=== PATIENT | female | born 1960 | race African-American/Black ===

== ENCOUNTER 2016-07-25 02:41 | Emergency (ER) | payer OTHER ==
[~2016-07-25] VITALS: Ht 170.2 cm; Wt 83.9 kg
[~2016-07-25 02:41] MED LIST: ACET30TA15; ATOR40TA52 PO; LORAPOW16; OMEP20CA5 OR; [UNRECOGNIZED DRUG - CODE] PO
[2016-07-25 03:51] LABS: Basophils # (auto) 0 uL; Basophils % (auto) 0.5 % (0.0-2.0); Eosinophils # (auto) 0.2 uL; Eosinophils % (auto) 2.5 % (0.0-7.0); Hematocrit 43.2 % (36.0-46.0); Hemoglobin 13.8 g/dL (12.2-16.2); Lymphocytes # (auto) 3.2 uL; Lymphocytes % (auto) 40.2 % (10.0-50.0); Mean Corpuscular Hemoglobin 27.3 pg (28.0-32.0); Mean Corpuscular Volume 85.2 fL (80.0-100.0); Monocytes # (auto) 0.4 uL; Monocytes % (auto) 5.1 % (0.0-12.0); Neutrophils # (auto) 4.1 uL; Neutrophils % (auto) 51.7 % (37.0-80.0); Platelet Count (auto) 268 10^3/uL (140-450); Red Cell Distribution Width 12.6 % (11.6-16.0)
[2016-07-25 04:07] LABS: Prothrombin Time 10.3 sec (9.37-12.3)
[2016-07-25 04:13] LABS: Albumin 3.7 g/dL (3.4-5.0); BUN/Creatinine Ratio 12.6; Calcium 8.9 mg/dL (8.5-10.1); Potassium 3.4 mmol/L (3.5-5.1)
[2016-07-25 04:15] LABS: Bilirubin, Total 0.4 mg/dL (0.2-1.0); Total Protein 6.8 g/dL (6.4-8.2)
[2016-07-25 04:20] LABS: Urine RBC None Seen /hpf (0 - 4)
[2016-07-25 04:27] LABS: Urine Bilirubin Negative (Negative); Urine Blood Negative /uL (Negative); Urine Color Colorless (Yellow); Urine Glucose Normal (Normal); Urine Ketone Negative (Negative); Urine Nitrite Negative (Negative); Urine Squamous Epithelial Cell FEW /hpf (<5); Urine Urobilinogen Normal (Negative); Urine pH 6.5 (5.0-8.0)
[2016-07-25] MEDS ORDERED: ASPirin 81 mg TAB PO ONE (06:15)
[2016-07-25] MEDS ORDERED: HYDROcodone-ACET 5/325MG TAB PO ONE (06:30)
[2016-07-25 09:06] VITALS: BP 150/93
== END 2016-07-25 09:29 | disposition short-term general hospital (02) ==
LOC: EDBD 02:41 → ER 02:44
DX: G45.9 Transient cerebral ischemic attack, unspecified (principal); R07.89 Other chest pain; E11.9 Type 2 diabetes mellitus without complications; M19.90 Unspecified osteoarthritis, unspecified site; K21.9 Gastro-esophageal reflux disease without esophagitis; E78.5 Hyperlipidemia, unspecified; I10 Essential (primary) hypertension; Z98.890 Other specified postprocedural states; Z88.6 Allergy status to analgesic agent
CPT/HCPCS: 36415; 70450; 71010; 80053; 81001; 84484; 85025; 85610; 85730; 93005; 94761

== ENCOUNTER 2023-12-02 19:01 | Inpatient (IN) | payer OTHER ==
[2023-12-01] MEDS: fentaNYL Drip 2500mCg/250mlNS 250 ML IV SCH (19:56)
[~2023-12-02] VITALS: Ht 172.7 cm; Wt 84.4 kg
[~2023-12-02 19:01] MED LIST changes: -OMEP20CA5 OR; +OMEP20CA74 OR
[2023-12-02] MEDS: NALOXONE HCL 1MG/ML 2ML SYRINGE IV ONE (19:20)
[2023-12-02] MEDS: NALOXONE HCL 1MG/ML 2ML SYRINGE ONE (19:20)
[2023-12-02] MEDS: PROPOFOL 100 ML IV ONE (19:24)
[2023-12-02] MEDS: ETOMIDATE (2MG/ML) 20ML VIAL IV ONE ×3 (19:24→19:30)
[2023-12-02] MEDS: MIDAZOLAM HCL 5 MG/ML-1ML VIAL ONE (19:25)
[2023-12-02] MEDS: SUCCINYLCHOLINE CHLORIDE 20 MG/ML 10ML VIAL IV ONE ×2 (19:32→19:34)
[2023-12-02] MEDS: PROPOFOL 100 ML IV SCH (19:37)
[2023-12-02] MEDS: NOREPINEPHRINE 8 MG/250ML KIT 250 ML IV ONE (19:54)
[2023-12-02] MEDS: fentaNYL Drip 2500mCg/250mlNS 250 ML IV ONE (19:56)
[2023-12-02] MEDS: NOREPINEPHRINE 8 MG/250ML KIT 250 ML IV SCH (20:00)
[2023-12-02] MEDS ORDERED: MORPHINE SULFATE 4 MG/ML SYR/VIAL IV PRN (20:15)
[2023-12-02] MEDS ORDERED: PROPOFOL 100 ML IV SCH (20:15)
[2023-12-02] MEDS: MIDAZOLAM HCL 2MG/2ML 2ml VIAL (1mg/ml) ONE (20:17)
[2023-12-02] MEDS: MIDAZOLAM HCL 5 MG/ML-1ML VIAL IV ONE ×2 (20:19→20:55)
[2023-12-02 20:21] LABS: Basophils # (auto) 0 10 ^3/uL (0-0.2); Basophils % (auto) 0.1 % (0.0-2.0); Eosinophils # (auto) 0 10 ^3/uL (0-0.8); Hematocrit 46.1 % (36.0-46.0); Hemoglobin 15.5 g/dL (12.2-16.2); Lymphocytes # (auto) 2.1 10 ^3/uL (0.4-5.4); Lymphocytes % (auto) 13.3 % (10.0-50.0); Mean Corpuscular Hemoglobin 28.8 pg (28.0-32.0); Mean Corpuscular Hgb Conc. 33.6 g/dL (32.0-36.0); Mean Corpuscular Volume 85.8 fL (80.0-100.0); Neutrophils # (auto) 12.8 10 ^3/uL (1.6-8.6); Neutrophils % (auto) 80.6 % (37.0-80.0); Nucleated Red Blood Cells % 0.1 %; Red Blood Cells 5.37 10^6/uL (4.0-5.20); Red Cell Distribution Width 13.6 % (11.8-14.3); White Blood Cell 15.9 10^3/uL (4.4-10.8)
[2023-12-02 20:37] LABS: Blood Alcohol < 3.0 mg/dL (<10); Magnesium 1.9 mg/dL (1.6-2.6)
[2023-12-02 20:39] LABS: Alanine Aminotransferase 11 U/L (7-40); Albumin 5.5 g/dL (3.2-4.8); Alkaline Phosphatase 84 U/L (46-116); Anion Gap 10 (5-15); Aspartate Aminotransferase 13 U/L (13-40); BUN/Creatinine Ratio 8.1 (10.0-20.0); Bilirubin, Total 0.3 mg/dL (0.2-1.0); Blood Urea Nitrogen 7 mg/dL (9-23); Calcium 11.2 mg/dL (8.5-10.1); Carbon Dioxide 24 mmol/L (20-30); Chloride 107 mmol/L (98-107); Glucose 109 mg/dL (74-106); Potassium 2.9 mmol/L (3.5-5.1); Sodium 141 mmol/L (136-145); Total Protein 8.6 g/dL (5.7-8.2)
[2023-12-02 20:41] LABS: Salicylate < 3.0 mg/dL (2.8-20.0)
[2023-12-02] MEDS: MIDAZOLAM DRIP 50 mg/50mL 50 ML IV SCH (20:50)
[2023-12-02 21:15] VITALS: BP 142/74; PULSE 88; RESP 23; O2SAT 100
[2023-12-02] MEDS: IOHEXOL 350 MG/ML 100ML IJ ONE (21:39)
[2023-12-02 22:24] LABS: Base Excess -0.3 mmol/L (-2.0-2.0)
[2023-12-02 23:00] VITALS: PULSE 88; RESP 23; O2SAT 100
[2023-12-02 23:10] LABS: Urine Bacteria None Seen /hpf (None Seen)
[2023-12-02 23:18] LABS: Urine Blood Negative /uL (Negative); Urine Clarity Clear (Clear); Urine Color Light-Yellow (Yellow); Urine Protein, UAD Negative (Negative); Urine Specific Gravity 1.045 (1.001-1.035); Urine Urobilinogen Normal (Negative); Urine WBC 1 /hpf (0 - 5)
[2023-12-02 23:27] LABS: Amphetamine Screen, Urine Neg (NEGATIVE); Barbiturate Scree,Urine Neg (NEGATIVE); Benzodiazephine Screen, Urine Pos (NEGATIVE); Cannabinoid Screen, Urine Neg (NEGATIVE); Cocaine Screen, Urine Neg (NEGATIVE); Opiate Scree,Urine Neg (NEGATIVE); Phencyclidine Screen, Urine Neg (NEGATIVE)
[2023-12-02 23:28] VITALS: BP 139/69; PULSE 82; RESP 22; TEMP 97.4; O2SAT 100
[2023-12-02 23:51] VITALS: BP 107/61; PULSE 85; RESP 20; O2SAT 100
[2023-12-03] VITALS (13 sets, daily range): BP systolic 125–150; BP diastolic 64–76; PULSE 85–97; RESP 18–25; O2SAT 95–100
[2023-12-03] MEDS: IPRATROPIUM BROM 0.5 MG/2.5ML INH SOL NEB SCH (00:02)
[2023-12-03 00:24] LABS: Triglycerides 300 mg/dL (< 150)
[2023-12-03 00:25] LABS: LDL Cholesterol 112 mg/dL (< 100)
[2023-12-03 00:26] LABS: Cholesterol 191 mg/dL (< 200); HDL Cholesterol 46 mg/dL (40-59)
[2023-12-03] MEDS: SODIUM CHLORIDE 0.9% 2,000 ML IV ONE (01:06)
[2023-12-03] MEDS: CEFEPIME 1GM/ 50ML 50 ML IV SCH (01:16)
[2023-12-03] MEDS: POTASSIUM CHL 20MEQ/100ML 100 ML IV SCH (01:27)
[2023-12-03] MEDS: SODIUM CHLORIDE 0.9% 1,000 ML IV SCH (04:52)
[2023-12-03] MEDS: ACETAMINOPHEN 650 mg PER 20.3 mL UD GT PRN (05:10)
[2023-12-03 06:07] LABS: Basophils # (auto) 0 10 ^3/uL (0-0.2); Basophils % (auto) 0.1 % (0.0-2.0); Eosinophils # (auto) 0 10 ^3/uL (0-0.8); Hematocrit 40.1 % (36.0-46.0); Hemoglobin 13.7 g/dL (12.2-16.2); Lymphocytes # (auto) 0.8 10 ^3/uL (0.4-5.4); Lymphocytes % (auto) 4.5 % (10.0-50.0); Mean Corpuscular Hemoglobin 28.9 pg (28.0-32.0); Mean Corpuscular Hgb Conc. 34.1 g/dL (32.0-36.0); Mean Corpuscular Volume 84.7 fL (80.0-100.0); Monocytes # (auto) 0.7 10 ^3/uL (0-1.3); Neutrophils # (auto) 16.4 10 ^3/uL (1.6-8.6); Neutrophils % (auto) 91.4 % (37.0-80.0); Red Blood Cells 4.73 10^6/uL (4.0-5.20); Red Cell Distribution Width 13.4 % (11.8-14.3)
[2023-12-03 06:21] LABS: Alanine Aminotransferase 10 U/L (7-40); Albumin 4.4 g/dL (3.2-4.8); Alkaline Phosphatase 65 U/L (46-116); Anion Gap 12 (5-15); Blood Urea Nitrogen 7 mg/dL (9-23); Calcium 10.1 mg/dL (8.7-10.4); Carbon Dioxide 23 mmol/L (20-30); Chloride 106 mmol/L (98-107); Glucose 157 mg/dL (74-106); Potassium 4.1 mmol/L (3.5-5.1); Sodium 141 mmol/L (136-145)
[2023-12-03 06:22] LABS: Aspartate Aminotransferase 17 U/L (13-40); Bilirubin, Total 0.6 mg/dL (0.2-1.0); Total Protein 6.9 g/dL (5.7-8.2)
[2023-12-03 07:44] LABS: BUN/Creatinine Ratio 9.7 (10.0-20.0)
[2023-12-03 09:25] LABS: Base Excess -2.1 mmol/L (-2.0-2.0)
[2023-12-03] MEDS: ATORVASTATIN 20 MG TAB PO SCH (10:19)
[2023-12-03] MEDS ORDERED: VANCOMYCIN PER PHARMACY 0 MG IV SCH (11:30)
[2023-12-03 12:13] LABS: Rapid Influenza A Negative (Negative); Rapid Influenza B Negative (Negative)
[2023-12-03 12:14] LABS: COVID19 ANTIGEN SOFIA FIA NEGATIVE (NEGATIVE)
[2023-12-03] MEDS: PANTOPRAZOLE 40 MG/10 ML VIAL INJ IV ONE (12:14)
[2023-12-03] MEDS: VANCOMYCIN 1GM/200ML 200 ML IV ONE (12:14)
[2023-12-03] MEDS: ENOXAPARIN SOD 40 MG/0.4 ML SYRINGE SC ONE (12:18)
[2023-12-03 12:19] LABS: INR 1.05 (0.9-1.15); Partial Thromboplastin Time 25.7 SEC (24.5-34.5); Prothrombin Time 11.1 sec (9.3-11.8)
[2023-12-03] MEDS: VANCOMYCIN 1GM/200ML 200 ML IV SCH (20:07)
[2023-12-04] VITALS (40 sets, daily range): BP systolic 108–157; BP diastolic 56–86; PULSE 73–116; RESP 16–22; TEMP 99.3–100.8; O2SAT 92–100
[2023-12-04 06:30] LABS: Basophils # (auto) 0 10 ^3/uL (0-0.2); Basophils % (auto) 0.1 % (0.0-2.0); Eosinophils # (auto) 0 10 ^3/uL (0-0.8); Eosinophils % (auto) 0.3 % (0.0-7.0); Hemoglobin 12.6 g/dL (12.2-16.2); Lymphocytes # (auto) 1.6 10 ^3/uL (0.4-5.4); Lymphocytes % (auto) 13.1 % (10.0-50.0); Mean Corpuscular Hgb Conc. 34.1 g/dL (32.0-36.0); Mean Corpuscular Volume 85.1 fL (80.0-100.0); Monocytes % (auto) 8.3 % (0.0-12.0); Neutrophils # (auto) 9.7 10 ^3/uL (1.6-8.6); Neutrophils % (auto) 78.2 % (37.0-80.0); Nucleated Red Blood Cells % 0.1 %; Red Blood Cells 4.35 10^6/uL (4.0-5.20); Red Cell Distribution Width 13.7 % (11.8-14.3); White Blood Cell 12.4 10^3/uL (4.4-10.8)
[2023-12-04 06:40] LABS: Alanine Aminotransferase 13 U/L (7-40); Albumin 3.7 g/dL (3.2-4.8); Alkaline Phosphatase 53 U/L (46-116)
[2023-12-04 06:41] LABS: Anion Gap 9 (5-15); Aspartate Aminotransferase 43 U/L (13-40); BUN/Creatinine Ratio 10.3 (10.0-20.0); Bilirubin, Total 0.7 mg/dL (0.2-1.0); Blood Urea Nitrogen 7 mg/dL (9-23); Carbon Dioxide 27 mmol/L (20-30); Chloride 111 mmol/L (98-107); Glucose 98 mg/dL (74-106); Magnesium 1.9 mg/dL (1.6-2.6); Potassium 3.5 mmol/L (3.5-5.1); Total Protein 6.1 g/dL (5.7-8.2)
[2023-12-04 06:52] LABS: Base Excess 0.5 mmol/L (-2.0-2.0)
[2023-12-04 07:09] LABS: Sodium 147 mmol/L (136-145)
[2023-12-04] MEDS: PANTOPRAZOLE 40 MG/10 ML VIAL INJ IV SCH (09:31)
[2023-12-04] MEDS: ENOXAPARIN SOD 40 MG/0.4 ML SYRINGE SC SCH (09:31)
[2023-12-04] MEDS: Jevity 1.2 Cal/Fiber 1 Liter GT SCH (19:00)
[2023-12-04] MEDS: FREE WATER GT SCH (20:18)
[2023-12-05] VITALS (112 sets, daily range): BP systolic 105–177; BP diastolic 61–100; PULSE 74–110; RESP 16–32; TEMP 98.4–101.5; O2SAT 95–100
[2023-12-05 06:19] LABS: Alanine Aminotransferase 22 U/L (7-40); Albumin 4.1 g/dL (3.2-4.8); Alkaline Phosphatase 60 U/L (46-116); Anion Gap 15 (5-15); Aspartate Aminotransferase 50 U/L (13-40); Bilirubin, Total 0.6 mg/dL (0.2-1.0); Calcium 10.4 mg/dL (8.7-10.4); Carbon Dioxide 19 mmol/L (20-30); Chloride 111 mmol/L (98-107); Glucose 83 mg/dL (74-106); Magnesium 2.2 mg/dL (1.6-2.6); Potassium 4.2 mmol/L (3.5-5.1); Sodium 145 mmol/L (136-145); Total Protein 6.8 g/dL (5.7-8.2)
[2023-12-05 06:21] LABS: BUN/Creatinine Ratio 7.6 (10.0-20.0); Blood Urea Nitrogen < 5 mg/dL (9-23)
[2023-12-05 06:37] LABS: Basophils # (auto) 0.1 10 ^3/uL (0-0.2); Basophils % (auto) 0.3 % (0.0-2.0); Eosinophils # (auto) 0.2 10 ^3/uL (0-0.8); Hematocrit 40.8 % (36.0-46.0); Hemoglobin 13.7 g/dL (12.2-16.2); Lymphocytes # (auto) 1.8 10 ^3/uL (0.4-5.4); Lymphocytes % (auto) 10.4 % (10.0-50.0); Mean Corpuscular Hemoglobin 28.9 pg (28.0-32.0); Mean Corpuscular Hgb Conc. 33.7 g/dL (32.0-36.0); Mean Corpuscular Volume 85.7 fL (80.0-100.0); Monocytes # (auto) 1.1 10 ^3/uL (0-1.3); Monocytes % (auto) 6.3 % (0.0-12.0); Neutrophils # (auto) 14.6 10 ^3/uL (1.6-8.6); Nucleated Red Blood Cells % 0.2 %; Red Blood Cells 4.76 10^6/uL (4.0-5.20); Red Cell Distribution Width 13.2 % (11.8-14.3); White Blood Cell 17.8 10^3/uL (4.4-10.8)
[2023-12-05 06:51] LABS: Platelet Estimate Adequate
[2023-12-05 08:34] LABS: Base Excess -0.3 mmol/L (-2.0-2.0)
[2023-12-05] MEDS ORDERED: LISI40TA16 PO (09:41)
[2023-12-05] MEDS ORDERED: AMLO1TAB23 PO (09:41)
[2023-12-05] MEDS ORDERED: ATEN100T PO (09:41)
[2023-12-05] MEDS: hydrALAZINE HCL 20 MG/ML VL IV PRN (11:27)
[2023-12-05] MEDS: LIDOCAINE 1% (LOCAL ANESTH.) PF 5ml SDV ID ONE (13:45)
[2023-12-05] MEDS: ATENOLOL 25 MG TAB PO ONE (14:27)
[2023-12-05] MEDS ORDERED: LABETALOL HCL 5 MG/ML 4ML SYRINGE IV PRN (17:00)
[2023-12-05] MEDS: LABETALOL HCL 5 MG/ML ML 20ML VIAL IV PRN (18:51)
[2023-12-05] MEDS: SODIUM CHLOR 0.9% PF (SALINE LOCK) 10ML VIAL/SYR IV SCH (21:35)
[2023-12-05] MEDS: VANCOMYCIN 1GM/200ML 200 ML IV SCH (21:36)
[2023-12-05] MEDS ORDERED: VANCOMYCIN 1GM/200ML 200 ML IV SCH (22:00)
[2023-12-06] VITALS (105 sets, daily range): BP systolic 130–171; BP diastolic 71–120; PULSE 67–109; RESP 14–30; TEMP 98.8–101.5; O2SAT 94–100
[2023-12-06 04:04] LABS: Basophils # (auto) 0.1 10 ^3/uL (0-0.2); Basophils % (auto) 0.4 % (0.0-2.0); Eosinophils # (auto) 0.1 10 ^3/uL (0-0.8); Eosinophils % (auto) 0.6 % (0.0-7.0); Hematocrit 40.4 % (36.0-46.0); Hemoglobin 13.9 g/dL (12.2-16.2); Lymphocytes # (auto) 1.5 10 ^3/uL (0.4-5.4); Mean Corpuscular Hemoglobin 29.1 pg (28.0-32.0); Mean Corpuscular Hgb Conc. 34.4 g/dL (32.0-36.0); Mean Corpuscular Volume 84.4 fL (80.0-100.0); Monocytes # (auto) 0.8 10 ^3/uL (0-1.3); Monocytes % (auto) 5.4 % (0.0-12.0); Neutrophils # (auto) 12.7 10 ^3/uL (1.6-8.6); Neutrophils % (auto) 83.6 % (37.0-80.0); Nucleated Red Blood Cells % 0.1 %; Red Blood Cells 4.79 10^6/uL (4.0-5.20); Red Cell Distribution Width 13.1 % (11.8-14.3); White Blood Cell 15.3 10^3/uL (4.4-10.8)
[2023-12-06 04:19] LABS: Calcium 10.7 mg/dL (8.5-10.1); Chloride 106 mmol/L (98-107); Potassium 3.8 mmol/L (3.5-5.1); Sodium 139 mmol/L (136-145)
[2023-12-06 04:20] LABS: Anion Gap 8 (5-15); Carbon Dioxide 25 mmol/L (20-30)
[2023-12-06 04:25] LABS: BUN/Creatinine Ratio 13.6 (10.0-20.0); Blood Urea Nitrogen 8 mg/dL (9-23); Glucose 110 mg/dL (74-106)
[2023-12-06 04:26] LABS: Magnesium 2.2 mg/dL (1.6-2.6)
[2023-12-06 07:23] LABS: Base Excess -3.2 mmol/L (-2.0-2.0)
[2023-12-06] MEDS ORDERED: DEXTROSE (50%) 50ML SYRG IV PRN (09:15)
[2023-12-06] MEDS: VANCOMYCIN 1,000 MG in D5W 5% 250 ML IV SCH (09:43)
[2023-12-06] MEDS: ATENOLOL 25 MG TAB PO SCH (09:45)
[2023-12-06] MEDS: InsuLIN REG 1unit/0.01ml Soln (100units/ml) SC SCH (11:21)
[2023-12-06] MEDS: ACCU-CHEK COMFORT CURVE STRIP VI SCH (11:21)
[2023-12-06] MEDS: CEFEPIME 2GM/50ML NS 50 ML IV SCH (15:12)
[2023-12-07] VITALS (103 sets, daily range): BP systolic 97–164; BP diastolic 58–109; PULSE 68–111; RESP 16–29; TEMP 96.4–102; O2SAT 94–99
[2023-12-07 03:42] LABS: Basophils # (auto) 0 10 ^3/uL (0-0.2); Basophils % (auto) 0.4 % (0.0-2.0); Eosinophils # (auto) 0.1 10 ^3/uL (0-0.8); Eosinophils % (auto) 0.8 % (0.0-7.0); Hematocrit 40.4 % (36.0-46.0); Hemoglobin 13.7 g/dL (12.2-16.2); Lymphocytes # (auto) 1.3 10 ^3/uL (0.4-5.4); Lymphocytes % (auto) 9.8 % (10.0-50.0); Mean Corpuscular Hemoglobin 28.8 pg (28.0-32.0); Mean Corpuscular Hgb Conc. 33.9 g/dL (32.0-36.0); Mean Corpuscular Volume 84.8 fL (80.0-100.0); Monocytes # (auto) 1.1 10 ^3/uL (0-1.3); Monocytes % (auto) 8.3 % (0.0-12.0); Neutrophils # (auto) 10.7 10 ^3/uL (1.6-8.6); Neutrophils % (auto) 80.7 % (37.0-80.0); Nucleated Red Blood Cells % 0.2 %; Red Blood Cells 4.77 10^6/uL (4.0-5.20); Red Cell Distribution Width 13.1 % (11.8-14.3); White Blood Cell 13.2 10^3/uL (4.4-10.8)
[2023-12-07 03:57] LABS: Alanine Aminotransferase 20 U/L (7-40); Albumin 4.3 g/dL (3.2-4.8); Alkaline Phosphatase 64 U/L (46-116); Anion Gap 12 (5-15); Aspartate Aminotransferase 22 U/L (13-40); BUN/Creatinine Ratio 19.7 (10.0-20.0); Blood Urea Nitrogen 13 mg/dL (9-23); Calcium 10.8 mg/dL (8.7-10.4); Carbon Dioxide 25 mmol/L (20-30); Chloride 102 mmol/L (98-107); Glucose 184 mg/dL (74-106); Magnesium 2.2 mg/dL (1.6-2.6); Potassium 3.8 mmol/L (3.5-5.1); Sodium 139 mmol/L (136-145); Total Protein 7.5 g/dL (5.7-8.2)
[2023-12-07 04:09] LABS: Bilirubin, Total 0.5 mg/dL (0.2-1.0)
[2023-12-07 08:15] LABS: Base Excess 1.4 mmol/L (-2.0-2.0)
[2023-12-07] MEDS ORDERED: ACETAMINOPHEN IV 1000 MG/100ML (10MG/ML) IV PRN (19:45)
[2023-12-07] MEDS: ACETAMINOPHEN IV 1000 MG/100ML (10MG/ML) IV PRN (21:30)
[2023-12-08] VITALS (109 sets, daily range): BP systolic 106–187; BP diastolic 62–163; PULSE 67–120; RESP 17–34; TEMP 97.3–100.9; O2SAT 93–100
[2023-12-08] MEDS: VANCOMYCIN 1GM/200ML 200 ML IV SCH ×2 (01:28→18:44)
[2023-12-08 03:44] LABS: Basophils # (auto) 0.1 10 ^3/uL (0-0.2); Basophils % (auto) 0.3 % (0.0-2.0); Eosinophils # (auto) 0.1 10 ^3/uL (0-0.8); Eosinophils % (auto) 0.7 % (0.0-7.0); Hematocrit 38.9 % (36.0-46.0); Hemoglobin 13.2 g/dL (12.2-16.2); Lymphocytes # (auto) 1.4 10 ^3/uL (0.4-5.4); Lymphocytes % (auto) 8.3 % (10.0-50.0); Mean Corpuscular Hemoglobin 28.6 pg (28.0-32.0); Mean Corpuscular Hgb Conc. 33.9 g/dL (32.0-36.0); Mean Corpuscular Volume 84.3 fL (80.0-100.0); Monocytes # (auto) 1.4 10 ^3/uL (0-1.3); Monocytes % (auto) 7.8 % (0.0-12.0); Neutrophils # (auto) 14.5 10 ^3/uL (1.6-8.6); Neutrophils % (auto) 82.9 % (37.0-80.0); Red Blood Cells 4.62 10^6/uL (4.0-5.20); Red Cell Distribution Width 13.4 % (11.8-14.3); White Blood Cell 17.4 10^3/uL (4.4-10.8)
[2023-12-08 04:02] LABS: Alanine Aminotransferase 20 U/L (7-40); Albumin 4.5 g/dL (3.2-4.8); Alkaline Phosphatase 75 U/L (46-116); Anion Gap 7 (5-15); Aspartate Aminotransferase 17 U/L (13-40); BUN/Creatinine Ratio 26.7 (10.0-20.0); Blood Urea Nitrogen 16 mg/dL (9-23); Calcium 10.6 mg/dL (8.5-10.1); Carbon Dioxide 26 mmol/L (20-30); Chloride 105 mmol/L (98-107); Glucose 117 mg/dL (74-106); Magnesium 2.2 mg/dL (1.6-2.6); Potassium 4.1 mmol/L (3.5-5.1); Sodium 138 mmol/L (136-145)
[2023-12-08 04:03] LABS: Bilirubin, Total 0.4 mg/dL (0.2-1.0); Total Protein 7.3 g/dL (5.7-8.2)
[2023-12-08 07:22] LABS: Base Excess 0.1 mmol/L (-2.0-2.0)
[2023-12-08] MEDS: DOCUSATE ORAL LIQUID 100 MG/10 ML UD GT SCH (21:20)
[2023-12-09] VITALS (109 sets, daily range): BP systolic 95–141; BP diastolic 46–99; PULSE 62–114; RESP 13–29; TEMP 95.9–100.8; O2SAT 90–100
[2023-12-09 06:18] LABS: Basophils # (auto) 0.1 10 ^3/uL (0-0.2); Basophils % (auto) 0.6 % (0.0-2.0); Eosinophils # (auto) 0.4 10 ^3/uL (0-0.8); Eosinophils % (auto) 3.1 % (0.0-7.0); Hemoglobin 13.9 g/dL (12.2-16.2); Lymphocytes # (auto) 4.2 10 ^3/uL (0.4-5.4); Lymphocytes % (auto) 29.7 % (10.0-50.0); Mean Corpuscular Hgb Conc. 33.9 g/dL (32.0-36.0); Mean Corpuscular Volume 85.5 fL (80.0-100.0); Monocytes # (auto) 1.5 10 ^3/uL (0-1.3); Monocytes % (auto) 10.5 % (0.0-12.0); Neutrophils % (auto) 56.1 % (37.0-80.0); Nucleated Red Blood Cells % 0.2 %; Red Cell Distribution Width 13.4 % (11.8-14.3); White Blood Cell 14.2 10^3/uL (4.4-10.8)
[2023-12-09 06:30] LABS: Chloride 107 mmol/L (98-107); Potassium 4.6 mmol/L (3.5-5.1); Sodium 138 mmol/L (136-145)
[2023-12-09 06:31] LABS: Anion Gap 5 (5-15); Calcium 10.7 mg/dL (8.5-10.1); Carbon Dioxide 26 mmol/L (20-30)
[2023-12-09 06:36] LABS: BUN/Creatinine Ratio 19.7 (10.0-20.0); Blood Urea Nitrogen 12 mg/dL (9-23); Glucose 114 mg/dL (74-106)
[2023-12-09 07:00] LABS: Base Excess -0.5 mmol/L (-2.0-2.0)
[2023-12-10] VITALS (88 sets, daily range): BP systolic 105–159; BP diastolic 62–90; PULSE 89–120; RESP 15–33; TEMP 97.9–100.6; O2SAT 92–100
[2023-12-10 03:54] LABS: Chloride 105 mmol/L (98-107); Potassium 4.5 mmol/L (3.5-5.1); Sodium 137 mmol/L (136-145)
[2023-12-10 03:55] LABS: Anion Gap 6 (5-15); Carbon Dioxide 26 mmol/L (20-30)
[2023-12-10 03:56] LABS: Calcium 10.7 mg/dL (8.7-10.4)
[2023-12-10 03:57] LABS: Basophils # (auto) 0.1 10 ^3/uL (0-0.2); Basophils % (auto) 0.6 % (0.0-2.0); Eosinophils # (auto) 0.2 10 ^3/uL (0-0.8); Eosinophils % (auto) 1.6 % (0.0-7.0); Hematocrit 37.8 % (36.0-46.0); Hemoglobin 12.7 g/dL (12.2-16.2); Lymphocytes # (auto) 1.7 10 ^3/uL (0.4-5.4); Lymphocytes % (auto) 12.2 % (10.0-50.0); Mean Corpuscular Hemoglobin 28.5 pg (28.0-32.0); Mean Corpuscular Hgb Conc. 33.7 g/dL (32.0-36.0); Mean Corpuscular Volume 84.5 fL (80.0-100.0); Monocytes # (auto) 1.1 10 ^3/uL (0-1.3); Monocytes % (auto) 8.2 % (0.0-12.0); Neutrophils # (auto) 10.8 10 ^3/uL (1.6-8.6); Neutrophils % (auto) 77.4 % (37.0-80.0); Nucleated Red Blood Cells % 0.1 %; Red Blood Cells 4.47 10^6/uL (4.0-5.20); Red Cell Distribution Width 12.9 % (11.8-14.3); White Blood Cell 13.9 10^3/uL (4.4-10.8)
[2023-12-10 04:00] LABS: BUN/Creatinine Ratio 25.8 (10.0-20.0); Blood Urea Nitrogen 17 mg/dL (9-23); Glucose 111 mg/dL (74-106)
[2023-12-10 07:38] LABS: Base Excess 1.7 mmol/L (-2.0-2.0)
[2023-12-10 08:30] LABS: Base Excess 2.1 mmol/L (-2.0-2.0)
[2023-12-10] MEDS: EPINEPHrine HCL 0.5 ML NEB NEB ONE (09:49)
[2023-12-10] MEDS: methylPREDNISolone SOD SUCC 40 MG/ML VL IV ONE (09:50)
[2023-12-10] MEDS: methylPREDNISolone SOD SUCC 40 MG/ML VL ONE (09:59)
[2023-12-10] MEDS ORDERED: ACETAMINOPHEN IV 1000 MG/100ML (10MG/ML) IV PRN ×2 (11:45→12:00)
[2023-12-10] MEDS: ACETAMINOPHEN IV 1000 MG/100ML (10MG/ML) IV PRN (12:01)
[2023-12-10] MEDS: ALBUTEROL SULF 2.5 MG/0.5ML(0.5%) NEB SOLN NEB SCH (14:04)
[2023-12-10] MEDS: KETOROLAC TROMETH 30 MG/ML 1ML VIAL IV ONE ×2 (16:16→19:48)
[2023-12-10] MEDS: MEROPENEM 1GM IVPB 50 ML IV ONE (16:35)
[2023-12-10] MEDS ORDERED: MEROPENEM 1GM IVPB 50 ML IV SCH (22:00)
== END 2023-12-10 20:47 | disposition short-term general hospital (02) | DRG 870 ==
LOC: EDBD 19:01 → ER 19:01 → TELE 23:33 → ICU WEST 12-04 16:58
PROVIDERS: ADMIT Internal Medicine; ATTEND Internal Medicine
PROC: 0BH17EZ Insertion of Endotracheal Airway into Trachea, Via Natural or Artificial Opening (ICD-10-PCS; principal; 2023-12-02)
PROC: 5A1955Z Respiratory Ventilation, Greater than 96 Consecutive Hours (ICD-10-PCS; 2023-12-02)
PROC: 06HY33Z Insertion of Infusion Device into Lower Vein, Percutaneous Approach (ICD-10-PCS; 2023-12-02)
PROC: 05HY33Z Insertion of Infusion Device into Upper Vein, Percutaneous Approach (ICD-10-PCS; 2023-12-05)
PROC: B54MZZA Ultrasonography of Right Upper Extremity Veins, Guidance (ICD-10-PCS; 2023-12-05)
DX: A41.9 Sepsis, unspecified organism (principal); J96.01 Acute respiratory failure with hypoxia; I50.21 Acute systolic (congestive) heart failure; I21.4 Non-ST elevation (NSTEMI) myocardial infarction; J69.0 Pneumonitis due to inhalation of food and vomit; N17.0 Acute kidney failure with tubular necrosis; R65.21 Severe sepsis with septic shock; G93.41 Metabolic encephalopathy; E87.4 Mixed disorder of acid-base balance; E87.0 Hyperosmolality and hypernatremia; K56.7 Ileus, unspecified; N39.0 Urinary tract infection, site not specified; I48.92 Unspecified atrial flutter; T40.2X1A Poisoning by other opioids, accidental (unintentional), initial encounter; Z20.822 Contact with and (suspected) exposure to COVID-19; E11.9 Type 2 diabetes mellitus without complications; E66.9 Obesity, unspecified; F17.200 Nicotine dependence, unspecified, uncomplicated; K21.9 Gastro-esophageal reflux disease without esophagitis; E78.5 Hyperlipidemia, unspecified; G89.4 Chronic pain syndrome; M79.7 Fibromyalgia; I11.0 Hypertensive heart disease with heart failure; I25.10 Atherosclerotic heart disease of native coronary artery without angina pectoris; K81.9 Cholecystitis, unspecified; E87.6 Hypokalemia; E83.42 Hypomagnesemia; E83.39 Other disorders of phosphorus metabolism; F32.A Depression, unspecified; D75.839 Thrombocytosis, unspecified; Z88.5 Allergy status to narcotic agent; Z82.5 Family history of asthma and other chronic lower respiratory diseases; Z82.49 Family history of ischemic heart disease and other diseases of the circulatory system; Z83.3 Family history of diabetes mellitus; Z88.0 Allergy status to penicillin; Z79.899 Other long term (current) drug therapy; Y92.89 Other specified places as the place of occurrence of the external cause; Z68.28 Body mass index [BMI] 28.0-28.9, adult
CPT/HCPCS: 31500; 36415; 36556; 36569; 36600; 70450; 71045; 71260; 74177; 76937; 80048; 80053; 80061; 80202; 80307; 80320; 80329; 81001; 82565; 82805; 82962; 83605; 83735; 84484; 85025; 85610; 85730; 87040; 87070; 87077; 87081; 87086; 87186; 87205; 87426; 87804; 92610; 93005; 93306; 93970; 94002; 94003; 94640; 96374; 99291; C9113; G0378; J0131; J0330; J0692; J1815; J1885; J2185; J2250; J2704; J3480; J7060